=== PATIENT | male | born 1995 | race Two or more races ===

== ENCOUNTER 2017-10-04 13:28 | Emergency (ER) | payer OTHER ==
[2017-10-04 13:44] VITALS: BP 135/68; PULSE 66; TEMP 98.7; BMI 35.5
[2017-10-04] MEDS ORDERED: IBUPROFEN 600 MG TABLET (FP) PO ONE ×2 (14:39→14:43)
--- NOTE | 2017-10-04 14:56 | PDOC ---
History of Present Illness - General Chief Complaint: Eye Problem Stated Complaint: EYE PROBLEM Time Seen by Provider: 10/04/17 14:05 History Source: Patient Exam Limitations: No Limitations - History of Present Illness Initial Comments: 10/04/17 14:37 Complaints of right eye injection and tenderness 3 days. States over the weekend had onset of pain, redness and tearing from right eye. States vision is within normal limits but is mild photophobia. Is uncertain but feels may have foreign body or scratch to his cornea for the past 2 days. Has used over-the- counter lubricating drops or basal constructors, is unclear as to what type. 10/04/17 15:11 Timing/Duration: unsure Severity: mild Modifying Factors: improves with: cold therapy Associated Symptoms: reports: denies symptoms. denies: fever/chills Past History - Travel Traveled outside of the country in the last 30 days: No Close contact w/someone who was outside of country & ill: No - Past Medical History Allergies/Adverse Reactions: Allergies Allergy/AdvReac Type Severity Reaction Status Date / Time No Known Allergies Allergy Verified 10/04/17 13:42 Home Medications: Ambulatory Orders No Home Medications 0 dose .ROUTE UTDICT 01/02/13 COPD: No Other medical history: DENIES. - Suicide/Smoking/Psychosocial Hx Smoking Status: No Smoking History: Never smoked Number of Cigarettes Smoked Daily: 0 Review of Systems - Review of Systems Able to Perform ROS?: Yes Is the patient limited Portuguese proficient: Yes Constitutional: Yes: Symptoms Reported, See HPI, Malaise. No: Fever HEENTM: Yes: Symptoms Reported, See HPI, Eye Pain, Tearing. No: Recent change in vision, Ear Pain Respiratory: No: Symptoms reported Integumentary: Yes: Symptoms Reported All Other Systems: Reviewed and Negative *Physical Exam - Vital Signs Last Vital Signs Temp Pulse Resp BP Pulse Ox 98.7 F 66 16 135/68 99 10/04/17 13:42 10/04/17 13:42 10/04/17 13:42 10/04/17 13:42 10/04/17 13:42 - Physical Exam General Appearance: Yes: Nourished, Appropriately Dressed, Apparent Distress, Mild Distress HEENT: positive: EOMI (severely injected, with ciliary flush noted to the right eye, with inflamed conjunctiva. Pupils are equal and react, no hyphema, no obvious foreign body noted. With fluorescein staining and slit lamp exam reveals a small ulceration/abrasion at 12:00 above Iris area on cornea. Visual acuity is within normal limits.), MARYLOU, TMs Normal, Pharynx Normal. negative: Normal ENT Inspection, Rhinorrhea, Sinus Tenderness Neck: positive: Supple. negative: Tender Respiratory/Chest: positive: Lungs Clear, Normal Breath Sounds Gastrointestinal/Abdominal: positive: Soft. negative: Tender Musculoskeletal: negative: Normal Inspection Extremity: positive: Normal Inspection Integumentary: positive: Normal Color, Dry, Warm Neurologic: positive: buttonhole marker II-XII NML intact, Fully Oriented, Alert, Normal Mood/ Affect, Normal Response, Motor Strength /5 Medical Decision Making - Medical Decision Making 10/04/17 15:[address] Robles's office who will see patient now in there office in [place]. Patient given information, understands need significant to directly to doctors office and they will treat him with any type of medication deemed necessary. *DC/Admit/Observation/Transfer Diagnosis at time of Disposition: Corneal abrasion, right Qualifiers: Encounter type: initial encounter Qualified Code(s): S05.01XA - Injury of conjunctiva and corneal abrasion without foreign body, right eye, initial encounter - Discharge Dispostion Disposition: HOME Condition at time of disposition: Stable Admit: No - Referrals Referrals: Gordon Brizuela MD [Staff Physician] - - Patient Instructions Printed Discharge Instructions: DI for Corneal Abrasion Additional Instructions: Rest, avoid rubbing eyes Wash hands, use eye drops as directed, wash hands after use May use eye lubricating drops as often as needed Tylenol or ibuprofen for pain relief Avoid contact with others until redness and discharge is gone from eyes. Followup with ophthalmology in one to 2 days for thorough exam Return to emergency department for worsened pain, swelling, vision problems. - Post Discharge Activity Forms/Work/School Notes: Back to School
== END 2017-10-04 14:44 | disposition home or self-care (01) ==
LOC: JERFT 13:28
DX: H57.11 Ocular pain, right eye (principal); S05.01XA Injury of conjunctiva and corneal abrasion without foreign body, right eye, initial encounter
CPT/HCPCS: 99281-25

== ENCOUNTER 2017-10-07 02:41 | Emergency (ER) | payer OTHER ==
[2017-10-07 03:05] VITALS: BP 119/65; PULSE 84; TEMP 98; BMI 35.5
[2017-10-07] MEDS ORDERED: FLUORESCEIN NA 1 EA STRIP OU ONE (03:21)
[2017-10-07] MEDS ORDERED: ERYTHROMYCIN 0.5% OPHTHALMIC OINTMENT 3.5 GM TUBE OU ONE (03:21)
[2017-10-07] MEDS ORDERED: TETRACAINE 0.5% HCL 0.6ML DROPPER.BOTTLE OU ONE (03:21)
--- NOTE | 2017-10-07 03:22 | PDOC ---
History of Present Illness - General Chief Complaint: Eye Problem Stated Complaint: EYE PROBLEM Time Seen by Provider: 10/07/17 03:13 History Source: Patient - History of Present Illness Initial Comments: 10/07/17 04:21 21 year old male with right eye redness and pain with increased photosensitivity. seen in the ER 3 days ago and was advised to see ophthalmology for corneal abrasion. Patient was seen by ophthalmology diagnosed with corneal abrasion currently on antibiotics. patient returned to the ER for worsening right eye pain. 10/24/17 19:42 Past History - Past Medical History Allergies/Adverse Reactions: Allergies Allergy/AdvReac Type Severity Reaction Status Date / Time No Known Allergies Allergy Verified 10/07/17 03:04 Home Medications: Ambulatory Orders No Home Medications 0 dose .ROUTE UTDICT 01/02/13 COPD: No - Suicide/Smoking/Psychosocial Hx Smoking Status: No Smoking History: Never smoked Have you smoked in the past 12 months: No Number of Cigarettes Smoked Daily: 0 Information on smoking cessation initiated: No Hx Alcohol Use: No Drug/Substance Use Hx: No Review of Systems - Review of Systems Able to Perform ROS?: Yes Is the patient limited Cypriot proficient: No HEENTM: Yes: Eye Pain. No: Symptoms Reported, See HPI, Blurred Vision, Tearing , Recent change in vision, Double Vision, Cataracts, Ear Pain, Ocular Prothesis , Ear Discharge, Nose Pain, Nose Congestion, Tinnitus, Nose Bleeding, Hearing Loss, Throat Pain, Throat Swelling, Mouth Pain, Dental Problems, Difficulty Swallowing, Mouth Swelling, Other *Physical Exam - Vital Signs Last Vital Signs Temp Pulse Resp BP Pulse Ox 98.0 F 84 20 119/65 99 10/07/17 03:04 10/07/17 03:04 10/07/17 03:04 10/07/17 03:04 10/07/17 03:04 - Physical Exam General Appearance: Yes: Appropriately Dressed HEENT: positive: Other (+ fluorescein uptake. + corneal ulceration) Medical Decision Making - Medical Decision Making Corneal ulceration P: fluroscene uptake tetracaine 10/07/17 04:[address] Pradhan (ophthalmology). recommended follow up in the office today at 9 am. continue erythromycin and tobramycin as prescribed by pmd *DC/Admit/Observation/Transfer Diagnosis at time of Disposition: Corneal ulceration Qualifiers: Laterality: right Qualified Code(s): H16.001 - Unspecified corneal ulcer, right eye - Discharge Dispostion Disposition: HOME - Referrals Referrals: ON STAFF,NOT [Primary Care Provider] - Parminder Pradhan MD [Staff Physician] - 24 hours (at 9 am . ) - Patient Instructions Printed Discharge Instructions: Corneal Abrasion Additional Instructions: Please see eye doctor at 8.50 am. - Post Discharge Activity
[2017-10-07] MEDS ORDERED: TETRACAINE 0.5% OPHTH SOLN 2 ML BOTTLE ONE (03:25)
[2017-10-07] MEDS ORDERED: ERYTHROMYCIN 0.5% OPHTHALMIC OINTMENT 3.5 GM TUBE ONE (03:25)
--- NOTE | 2017-10-07 04:15 | PDOC ---
*Physical Exam - Vital Signs Last Vital Signs Temp Pulse Resp BP Pulse Ox 98.0 F 84 20 119/65 99 10/07/17 03:04 10/07/17 03:04 10/07/17 03:04 10/07/17 03:04 10/07/17 03:04 Medical Decision Making - Medical Decision Making 10/07/17 04:15 agree with care from [employer] OFFICER Hans *DC/Admit/Observation/Transfer Diagnosis at time of Disposition: Corneal ulceration - Discharge Dispostion Disposition: HOME - Referrals Referrals: Parminder Pradhan MD [Staff Physician] - 24 hours (at 9 am . ) ON STAFF,NOT [Primary Care Provider] - - Patient Instructions Printed Discharge Instructions: Corneal Abrasion Additional Instructions: Please see eye doctor at 8.50 am. - Post Discharge Activity
== END 2017-10-07 04:34 | disposition home or self-care (01) ==
LOC: JER 02:41
DX: H16.001 Unspecified corneal ulcer, right eye (principal)
CPT/HCPCS: 99281-25